=== PATIENT | female | born 1980 | race Caucasian/White ===

== ENCOUNTER → 2019-04-09 | Outpatient (CLI) | payer BC ==
[~2019-04-09] MED LIST: CETI10TA17 PO; CYAN10007 PO; LEVO1TAB38 PO; MV M PO; OMEG1CAP58 PO; PRD20T PO
--- NOTE | 2019-04-09 15:24 | Diagnostic Imaging Report ---
INDICATION: Chest wall pain. PA and lateral chest. FINDINGS: Heart size and pulmonary vascularity are normal. Lungs are clear. There are no effusions or pneumothoraces. IMPRESSION: Negative chest. Dictated by: Dictated on workstation # [id number]
== END ==
LOC: RAD FS 14:57
PROVIDERS: ATTEND Nurse Practitioner Family
DX: R07.89 Other chest pain (principal)
CPT/HCPCS: 71046

== ENCOUNTER → 2022-04-28 | Outpatient (CLI) | payer BC ==
--- NOTE | 2022-04-28 17:38 | Diagnostic Imaging Report ---
INDICATION: Renal stones Abdominal film obtained at 1016 a.m. Abdominal bowel gas pattern is unremarkable. There is moderate stool throughout the colon. There is no overt obstruction or ileus. There are multiple small stones overlying the left renal shadow. No significant right-sided stones are evident. IMPRESSION: Multiple small calculi overlying the left kidney are noted. Unremarkable bowel gas pattern. Dictated by: Dictated on workstation # [id number]
== END ==
LOC: RAD 09:52
PROVIDERS: ATTEND Urology
DX: N20.0 Calculus of kidney (principal)
CPT/HCPCS: 74018